=== PATIENT | male | born 1940 | race Caucasian/White ===

== ENCOUNTER 2017-07-27 08:25 | Day surgery (SDC) | payer MEDICARE ==
[~2017-07-27] VITALS: Ht 167.6 cm; Wt 87.4 kg
[~2017-07-27 08:25] MED LIST: ESOM40CA PO; METO-391 PO; METR45GE TP; SODIUM CHLORIDE 0.9% 1000ML 1,000 ML IV ONE
[2017-07-27 08:57] VITALS: BP 166/68
[2017-07-27] MEDS ORDERED: PROPOFOL 10 MG/ML 20ML VIAL IV ONE (10:52)
== END 2017-07-27 12:10 | disposition home or self-care (01) ==
LOC: DAH 08:25
PROVIDERS: ATTEND Internal Medicine
DX: D12.8 Benign neoplasm of rectum (principal); K63.5 Polyp of colon; K64.8 Other hemorrhoids; K29.80 Duodenitis without bleeding; K57.30 Diverticulosis of large intestine without perforation or abscess without bleeding; K31.89 Other diseases of stomach and duodenum; K31.7 Polyp of stomach and duodenum; D50.9 Iron deficiency anemia, unspecified; K74.60 Unspecified cirrhosis of liver; E66.9 Obesity, unspecified; Z68.30 Body mass index [BMI] 30.0-30.9, adult; Z86.010 Personal history of colon polyps
CPT/HCPCS: 43239; 45380; 45385; 88305; 88312; 93005; A4649; J2704; J7030

== ENCOUNTER 2017-07-27 21:03 | Inpatient (IN) | payer MEDICARE ==
[~2017-07-27] VITALS: Ht 170.2 cm; Wt 88.5 kg
[~2017-07-27 21:03] MED LIST changes: -SODIUM CHLORIDE 0.9% 1000ML 1,000 ML IV ONE
[2017-07-27 21:43] LABS: BASOPHILS % (AUTO) 0.4 % (0.0-5.0); EOSINOPHILS % (AUTO) 0.3 % (0.0-8.0); LYMPHOCYTES % (AUTO) 10.4 % (21.0-51.0); MEAN CORPUSCULAR HEMOGLOBIN 27.1 pg (27.0-33.0); MEAN CORPUSCULAR HGB CONC 32.5 g/dL (32.0-36.0); MEAN CORPUSCULAR VOLUME 83.5 fL (79-99); MONOCYTES % (AUTO) 14.4 % (3.0-13.0); NEUTROPHILS % (AUTO) 74.5 % (40.0-77.0); PLATELET COUNT (AUTO) 187 K/uL (130-400); RED BLOOD CELL COUNT(AUTO) 3.71 MIL/uL (4.50-6.20); RED CELL DISTRIBUTION WIDTH 24.7 % (11.0-15.5); WHITE BLOOD COUNT (AUTO) 6.1 K/uL (4.8-10.8)
[2017-07-27 21:53] LABS: INR 1.19 (0.85-1.15); PARTIAL THROMBOPLASTIN TIME 41.9 SEC (26.3-35.5); PROTHROMBIN TIME 12.5 SEC (9.6-11.6)
[2017-07-27 22:12] LABS: CREATININE 0.9 mg/dL (0.5-1.5); POTASSIUM 3.8 mmol/L (3.5-5.1)
[2017-07-27 22:17] LABS: ALBUMIN 2.9 g/dL (3.5-5.0); BILIRUBIN,TOTAL 1.9 mg/dL (0.2-1.0); TOTAL PROTEIN, SERUM 7.7 g/dL (6.0-8.3)
[2017-07-27] MEDS ORDERED: ONDANSETRON HCL 4 MG/2 ML VIAL ONE (23:29)
[2017-07-28] VITALS (20 sets, daily range): BP systolic 109–153; BP diastolic 37–82
[2017-07-28] MEDS ORDERED: ONDANSETRON HCL 4 MG/2 ML VIAL IV PRN ×2 (00:15→09:45)
[2017-07-28] MEDS ORDERED: POTASSIUM CHLORIDE 20 MEQ ERTAB PO PRN (00:15)
[2017-07-28] MEDS ORDERED: POTASSIUM CHLORIDE 10% ELIXIR 20 MEQ/15 ML UDCUP PO PRN (00:15)
[2017-07-28] MEDS ORDERED: POTASSIUM CHLORIDE 20MEQ/100ML 100 ML IV PRN (00:15)
[2017-07-28] MEDS ORDERED: HYDRALAZINE HCL 20 MG/ML VIAL IV PRN ×2 (00:15→09:45)
[2017-07-28] MEDS ORDERED: LIDOCAINE HCL-MPF 1% 2ML VIAL IVP PRN (00:15)
[2017-07-28] MEDS ORDERED: SODIUM CHLORIDE 0.9% 100 ML IV ONE (00:52)
[2017-07-28 02:17] LABS: HEMATOCRIT 26.7 % (42-54)
[2017-07-28 06:11] LABS: HEMATOCRIT 23.6 % (42-54); MEAN CORPUSCULAR HEMOGLOBIN 29.9 pg (27.0-33.0); MEAN CORPUSCULAR HGB CONC 35.8 g/dL (32.0-36.0); MEAN CORPUSCULAR VOLUME 83.6 fL (79-99); PLATELET COUNT (AUTO) 117 K/uL (130-400); RED BLOOD CELL COUNT(AUTO) 2.82 MIL/uL (4.50-6.20); RED CELL DISTRIBUTION WIDTH 24.5 % (11.0-15.5); WHITE BLOOD COUNT (AUTO) 3.7 K/uL (4.8-10.8)
[2017-07-28 06:22] LABS: CREATININE 0.7 mg/dL (0.5-1.5); POTASSIUM 3.6 mmol/L (3.5-5.1)
[2017-07-28] MEDS ORDERED: PANTOPRAZOLE SODIUM 80 MG in SODIUM CHLORIDE 0.9% 100 ML IV SCH (09:00)
[2017-07-28] MEDS ORDERED: SODIUM CHLORIDE 0.9% 1000ML 1,000 ML IV SCH (09:35)
[2017-07-28] MEDS ORDERED: NITROGLYCERIN 0.4 MG SL TAB SL PRN (09:45)
[2017-07-28] MEDS ORDERED: MORPHINE SULFATE 2 MG/ML 1ML SYG IV PRN (09:45)
[2017-07-28] MEDS ORDERED: ACETAMINOPHEN 325 MG TAB PO PRN ×2 (09:45)
[2017-07-28] MEDS ORDERED: LACTULOSE 20 GM/30 ML UDCUP PO PRN (09:45)
[2017-07-28] MEDS ORDERED: MAG HYDROX/AL HYDROX/SIMETH ES 30 ML SUSP UDCUP PO PRN (09:45)
[2017-07-28] MEDS ORDERED: GUAIFENESIN-DM 200/20 MG 10 ML PO PRN (09:45)
[2017-07-28] MEDS ORDERED: ACETAMINOPHEN-CODEINE 300/30MG TAB PO PRN (09:45)
[2017-07-28] MEDS ORDERED: PEG 3350/NA SULF,BICARB,CL/KCL 4000 ML SOLN PO SCH (12:00)
[2017-07-28 18:13] LABS: HEMATOCRIT 25.2 % (42-54)
[2017-07-28] MEDS ORDERED: MEPERIDINE-PF 50 MG/ML SYG ONE (18:59)
[2017-07-28] MEDS ORDERED: MIDAZOLAM HCL 1 MG/ML 2ML VIAL ONE (19:00)
[2017-07-28] MEDS ORDERED: EPINEPHRINE 1 MG/ML AMPULE ONE (19:14)
[2017-07-28] MEDS: **HM** TOPROL XL 50MG PO SCH (21:00)
[2017-07-29] VITALS (10 sets, daily range): BP systolic 102–149; BP diastolic 46–72
[2017-07-29 04:49] LABS: HEMATOCRIT 22.6 % (42-54); MEAN CORPUSCULAR HEMOGLOBIN 27.5 pg (27.0-33.0); MEAN CORPUSCULAR HGB CONC 32.3 g/dL (32.0-36.0); PLATELET COUNT (AUTO) 116 K/uL (130-400); RED BLOOD CELL COUNT(AUTO) 2.65 MIL/uL (4.50-6.20); WHITE BLOOD COUNT (AUTO) 3.7 K/uL (4.8-10.8)
[2017-07-29 05:08] LABS: CREATININE 0.8 mg/dL (0.5-1.5); POTASSIUM 3.4 mmol/L (3.5-5.1)
[2017-07-29] MEDS: **HM** TOPROL XL 50MG PO SCH ×2 (09:00→21:00)
[2017-07-29 11:09] LABS: MEAN CORPUSCULAR HEMOGLOBIN 27.4 pg (27.0-33.0); MEAN CORPUSCULAR HGB CONC 32.3 g/dL (32.0-36.0); MEAN CORPUSCULAR VOLUME 84.6 fL (79-99); NUCLEATED RED BLOOD CELLS 0.1 % (0.0-0.19); PLATELET COUNT (AUTO) 103 K/uL (130-400); RED BLOOD CELL COUNT(AUTO) 2.59 MIL/uL (4.50-6.20); RED CELL DISTRIBUTION WIDTH 24.7 % (11.0-15.5); WHITE BLOOD COUNT (AUTO) 3.4 K/uL (4.8-10.8)
[2017-07-30 04:00] VITALS: BP 136/72
[2017-07-30 04:58] LABS: HEMATOCRIT 28.7 % (42-54); MEAN CORPUSCULAR HEMOGLOBIN 28.7 pg (27.0-33.0); MEAN CORPUSCULAR VOLUME 84.4 fL (79-99); PLATELET COUNT (AUTO) 113 K/uL (130-400); RED BLOOD CELL COUNT(AUTO) 3.39 MIL/uL (4.50-6.20); RED CELL DISTRIBUTION WIDTH 22.7 % (11.0-15.5); WHITE BLOOD COUNT (AUTO) 3.5 K/uL (4.8-10.8)
[2017-07-30 05:05] LABS: CREATININE 0.8 mg/dL (0.5-1.5); POTASSIUM 3.1 mmol/L (3.5-5.1)
[2017-07-30 08:00] VITALS: BP 126/61
[2017-07-30] MEDS: **HM** TOPROL XL 50MG PO SCH (08:44)
[2017-07-30] MEDS ORDERED: PANTOPRAZOLE SODIUM 40 MG TABLET.DR PO SCH (09:00)
== END 2017-07-30 12:25 | disposition home or self-care (01) | DRG 348 ==
LOC: EDH 21:03 → EDHIP 22:58 → OBSVTOIN 22:58 → INTOOBSV 22:58 → 3DH 07-28 01:02
PROVIDERS: ADMIT Internal Medicine; ATTEND Internal Medicine
PROC: 30233N1 Transfusion of Nonautologous Red Blood Cells into Peripheral Vein, Percutaneous Approach (ICD-10-PCS; principal; 2017-07-27)
PROC: 0DB Gastrointestinal System, Excision (ICD-10-PCS; 2017-07-27)
PROC: 0DJD8ZZ Inspection of Lower Intestinal Tract, Via Natural or Artificial Opening Endoscopic (ICD-10-PCS; 2017-07-27)
DX: K92.2 Gastrointestinal hemorrhage, unspecified (principal); D62 Acute posthemorrhagic anemia; K63.3 Ulcer of intestine; D69.6 Thrombocytopenia, unspecified; K70.30 Alcoholic cirrhosis of liver without ascites; F10.10 Alcohol abuse, uncomplicated; D72.819 Decreased white blood cell count, unspecified; I10 Essential (primary) hypertension; Z96.641 Presence of right artificial hip joint; Z88.8 Allergy status to other drugs, medicaments and biological substances
CPT/HCPCS: 36415; 36430; 74176; 80048; 80053; 82270; 85025; 85027; 85610; 85730; 86850; 86900; 86901; 86922; 88305; 88312; 93005; C9113; J0171; J2175; J2250; J2405; J2704; J7030; P9016

== ENCOUNTER 2018-02-08 06:05 | Day surgery (SDC) | payer MEDICARE ==
[~2018-02-08] VITALS: Ht 170.2 cm; Wt 88.3 kg
[~2018-02-08 06:05] MED LIST changes: +FURO20TA4 PO; -METR45GE TP; +SODIUM CHLORIDE 0.9% 1000ML 1,000 ML IV ONE
[2018-02-08 07:13] VITALS: BP 131/68
[2018-02-08] MEDS ORDERED: PROPOFOL 10 MG/ML 20ML VIAL IV ONE (08:07)
[2018-02-08 08:18] VITALS: BP 153/83
[2018-02-08 08:26] VITALS: BP 131/75
[2018-02-08 08:31] VITALS: BP 120/84
[2018-02-08 08:35] VITALS: BP 128/74
== END 2018-02-08 09:16 | disposition home or self-care (01) ==
LOC: ENDO 06:05 → DAH 06:05 → ENDO 09:16
PROVIDERS: ATTEND Internal Medicine Gastroenterology
DX: I85.00 Esophageal varices without bleeding (principal); K29.50 Unspecified chronic gastritis without bleeding; K70.30 Alcoholic cirrhosis of liver without ascites; I10 Essential (primary) hypertension; K21.9 Gastro-esophageal reflux disease without esophagitis; K76.6 Portal hypertension; K31.89 Other diseases of stomach and duodenum; M19.019 Primary osteoarthritis, unspecified shoulder; Z79.899 Other long term (current) drug therapy; Z88.8 Allergy status to other drugs, medicaments and biological substances; Z96.641 Presence of right artificial hip joint
CPT/HCPCS: 43239; 43244; 88305; 88312; 88342; 93005; A4606; J2704; J7030

== ENCOUNTER 2018-03-30 22:17 | Inpatient (IN) | payer MEDICARE ==
[~2018-03-30] VITALS: Ht 170.2 cm; Wt 73.5 kg
[~2018-03-30 22:17] MED LIST changes: -SODIUM CHLORIDE 0.9% 1000ML 1,000 ML IV ONE
[2018-03-30] MEDS ORDERED: SODIUM CHLORIDE 0.9% 500ML 500 ML IV ONE (22:47)
[2018-03-30] MEDS ORDERED: ONDANSETRON HCL 4 MG/2 ML VIAL ONE (22:47)
[2018-03-30 22:49] LABS: HEMATOCRIT 34.6 % (42-54); LYMPHOCYTES % (AUTO) 19.6 % (21.0-51.0); MEAN CORPUSCULAR HEMOGLOBIN 29.8 pg (27.0-33.0); MEAN CORPUSCULAR HGB CONC 33.4 g/dL (32.0-36.0); MEAN CORPUSCULAR VOLUME 89.2 fL (79-99); MONOCYTES % (AUTO) 12.7 % (3.0-13.0); NEUTROPHILS % (AUTO) 64.7 % (40.0-77.0); NUCLEATED RED BLOOD CELLS 0.1 % (0.0-0.19); PLATELET COUNT (AUTO) 217 K/uL (130-400); RED BLOOD CELL COUNT(AUTO) 3.88 MIL/uL (4.50-6.20); RED CELL DISTRIBUTION WIDTH 16.7 % (11.0-15.5); WHITE BLOOD COUNT (AUTO) 8.1 K/uL (4.8-10.8)
[2018-03-30 23:03] LABS: INR 1.18 (0.85-1.15); PARTIAL THROMBOPLASTIN TIME 45.6 SEC (26.3-35.5); PROTHROMBIN TIME 12.3 SEC (9.6-11.6)
[2018-03-30 23:24] LABS: ALBUMIN 2.8 g/dL (3.5-5.0); BILIRUBIN,TOTAL 0.9 mg/dL (0.2-1.0); TOTAL PROTEIN, SERUM 8.3 g/dL (6.0-8.3)
[2018-03-30] MEDS ORDERED: IOHEXOL-350 75 ML VIAL IV ONE (23:28)
[2018-03-30] MEDS ORDERED: METOCLOPRAMIDE 10 MG/2 ML VIAL ONE (23:53)
[2018-03-30] MEDS ORDERED: SODIUM CHLORIDE 0.9% 250 ML IV ONE (23:57)
[2018-03-31] MEDS ORDERED: IOHEXOL-350 75 ML VIAL IV ONE (00:21)
[2018-03-31 01:20] VITALS: BP 157/82
[2018-03-31] MEDS ORDERED: ONDANSETRON HCL MDV 20ML 2 MG/ML VIAL IV PRN (01:45)
[2018-03-31] MEDS ORDERED: MORPHINE SULFATE 2 MG/ML 1ML SYG IV PRN (01:45)
[2018-03-31] MEDS ORDERED: MORPHINE SULFATE 4 MG/1ML SYG IV PRN (01:45)
[2018-03-31 04:00] VITALS: BP 129/69
[2018-03-31 06:11] LABS: HEMATOCRIT 30.7 % (42-54); MEAN CORPUSCULAR HEMOGLOBIN 29.2 pg (27.0-33.0); MEAN CORPUSCULAR HGB CONC 32.7 g/dL (32.0-36.0); MEAN CORPUSCULAR VOLUME 89.5 fL (79-99); PLATELET COUNT (AUTO) 159 K/uL (130-400); RED BLOOD CELL COUNT(AUTO) 3.43 MIL/uL (4.50-6.20); RED CELL DISTRIBUTION WIDTH 16.6 % (11.0-15.5); WHITE BLOOD COUNT (AUTO) 6.6 K/uL (4.8-10.8)
[2018-03-31 06:20] LABS: INR 1.21 (0.85-1.15); PARTIAL THROMBOPLASTIN TIME 47.8 SEC (26.3-35.5); PROTHROMBIN TIME 12.7 SEC (9.6-11.6)
[2018-03-31 06:22] LABS: ALBUMIN 2.5 g/dL (3.5-5.0); BILIRUBIN,TOTAL 1.2 mg/dL (0.2-1.0); CREATININE 0.9 mg/dL (0.5-1.5); POTASSIUM 4.3 mmol/L (3.5-5.1); TOTAL PROTEIN, SERUM 7.3 g/dL (6.0-8.3)
[2018-03-31 07:00] VITALS: BP 122/62
[2018-03-31] MEDS ORDERED: ENOXAPARIN SODIUM 30 MG/0.3 ML SQ SCH (09:00)
[2018-03-31] MEDS: FAMOTIDINE/PF 20 MG/2 ML VIAL IV SCH ×2 (09:17→21:56)
[2018-03-31] MEDS ORDERED: SPIR50TA PO (09:21)
[2018-03-31 11:00] VITALS: BP 114/68
[2018-03-31] MEDS: SODIUM CHLORIDE 0.9% 1000ML 1,000 ML IV SCH ×3 (11:32→21:32)
[2018-03-31] MEDS ORDERED: LACTULOSE 20 GM/30 ML UDCUP PO SCH (15:30)
[2018-03-31 16:00] VITALS: BP 126/62
[2018-03-31 20:00] VITALS: BP 144/70
[2018-04-01 00:09] VITALS: BP 124/60
[2018-04-01 04:15] VITALS: BP 124/56
[2018-04-01 05:05] LABS: BASOPHILS % (AUTO) 0.7 % (0.0-5.0); EOSINOPHILS % (AUTO) 7.4 % (0.0-8.0); HEMATOCRIT 29.8 % (42-54); LYMPHOCYTES % (AUTO) 19.3 % (21.0-51.0); MEAN CORPUSCULAR HEMOGLOBIN 30.4 pg (27.0-33.0); MEAN CORPUSCULAR HGB CONC 33.8 g/dL (32.0-36.0); MONOCYTES % (AUTO) 14.2 % (3.0-13.0); NEUTROPHILS % (AUTO) 58.4 % (40.0-77.0); NUCLEATED RED BLOOD CELLS 0.1 % (0.0-0.19); PLATELET COUNT (AUTO) 172 K/uL (130-400); RED BLOOD CELL COUNT(AUTO) 3.31 MIL/uL (4.50-6.20); RED CELL DISTRIBUTION WIDTH 16.7 % (11.0-15.5)
[2018-04-01] MEDS: SODIUM CHLORIDE 0.9% 1000ML 1,000 ML IV SCH (05:05)
[2018-04-01 05:14] LABS: CREATININE 0.8 mg/dL (0.5-1.5); POTASSIUM 4.1 mmol/L (3.5-5.1)
[2018-04-01 07:00] VITALS: BP 149/66
[2018-04-01] MEDS: FAMOTIDINE/PF 20 MG/2 ML VIAL IV SCH (08:52)
[2018-04-01] MEDS ORDERED: SPIRONOLACTONE 25 MG TAB PO SCH (09:00)
[2018-04-01] MEDS ORDERED: FUROSEMIDE 20 MG TABLET PO SCH (09:00)
[2018-04-01 11:00] VITALS: BP 146/76
== END 2018-04-01 14:30 | disposition home or self-care (01) | DRG 390 ==
LOC: EDH 22:17 → EDHIP 03-31 00:10 → OBSVTOIN 03-31 00:10 → 3BH 03-31 01:03
PROVIDERS: ADMIT Internal Medicine; ATTEND Internal Medicine
DX: K56.600 Partial intestinal obstruction, unspecified as to cause (principal); Z80.51 Family history of malignant neoplasm of kidney; I10 Essential (primary) hypertension; K21.9 Gastro-esophageal reflux disease without esophagitis; Z87.891 Personal history of nicotine dependence; Z96.641 Presence of right artificial hip joint; E66.9 Obesity, unspecified; Z68.25 Body mass index [BMI] 25.0-25.9, adult
CPT/HCPCS: 36415; 74021; 74177; 80048; 80053; 82140; 83605; 83690; 84484; 85025; 85027; 85610; 85730; 93005; J2405; J2765; J3490; J7030; J7040; Q9967

== ENCOUNTER 2018-04-04 06:03 | Day surgery (SDC) | payer MEDICARE ==
[~2018-04-04] VITALS: Ht 199.4 cm; Wt 74.3 kg
[~2018-04-04 06:03] MED LIST changes: -METO-391 PO; +SODIUM CHLORIDE 0.9% 1000ML 1,000 ML IV ONE; +SPIR50TA PO
[2018-04-04 06:21] VITALS: BP 128/51
[2018-04-04] MEDS ORDERED: PROPOFOL 10 MG/ML 20ML VIAL IV ONE ×2 (07:27)
[2018-04-04 07:38] VITALS: BP 93/46
[2018-04-04 07:45] VITALS: BP 98/52
[2018-04-04 07:50] VITALS: BP 103/54
== END 2018-04-04 08:10 | disposition home or self-care (01) ==
LOC: DAH 06:03
PROVIDERS: ATTEND Internal Medicine Gastroenterology
DX: I85.00 Esophageal varices without bleeding (principal); K31.89 Other diseases of stomach and duodenum; K76.6 Portal hypertension; I86.4 Gastric varices; K74.60 Unspecified cirrhosis of liver; I10 Essential (primary) hypertension; K21.9 Gastro-esophageal reflux disease without esophagitis; Z98.890 Other specified postprocedural states; Z79.899 Other long term (current) drug therapy; Z96.641 Presence of right artificial hip joint; Z88.8 Allergy status to other drugs, medicaments and biological substances
CPT/HCPCS: 43239; 88305; 88342; 93005; A4606; J2704 ×2; J7030

== ENCOUNTER 2018-09-26 10:17 | Day surgery (SDC) | payer MEDICARE ==
[~2018-09-26] VITALS: Ht 170.2 cm; Wt 81.6 kg
[2018-09-26] VITALS (8 sets, daily range): BP systolic 94–118; BP diastolic 54–62
[2018-09-26] MEDS ORDERED: LACT10SO32 PO (10:53)
--- NOTE | 2018-09-26 11:45 | NUR ---
piv piv removed to left hand, noted bleeding so manual pressured applied for about 5 minutes. after pressured applied noted bruising to site. pt denies taking blood thinners,, bleeding stop, but brusing to left hand, no hematoma noted only bruising. ice pack given to patient to apply at home . dc instructions given to pt / pt spouse, instructed to f/u with dr. maria. verbalized understanding. pt awake and alert, denies any pain or discomforts. small pressure dressing applied to left hand site iv area.
--- NOTE | 2018-09-26 12:00 | NUR ---
dc pt dc home via wc,no distress noted. denies any pain or discomforts. accompanied by spouse, pt denies any pain or discomforts
== END 2018-09-26 12:00 | disposition home or self-care (01) ==
LOC: DAH 10:17 → ENDO 10:17
PROVIDERS: ATTEND Internal Medicine
DX: K29.70 Gastritis, unspecified, without bleeding (principal); D50.9 Iron deficiency anemia, unspecified; K31.819 Angiodysplasia of stomach and duodenum without bleeding; K31.89 Other diseases of stomach and duodenum; I85.00 Esophageal varices without bleeding; K70.31 Alcoholic cirrhosis of liver with ascites; K21.9 Gastro-esophageal reflux disease without esophagitis; I10 Essential (primary) hypertension; Z98.890 Other specified postprocedural states; Z79.899 Other long term (current) drug therapy; Z86.010 Personal history of colon polyps; Z88.8 Allergy status to other drugs, medicaments and biological substances
CPT/HCPCS: 43239; 88305; A4606; J7030

== ENCOUNTER 2018-12-30 09:41 | Inpatient (IN) | payer MEDICARE | END 2019-01-05 09:00 | disposition left against medical advice (07) | LOC: EDH 09:41 → EDHIP 13:58 → 3CH 19:41 | PROC: 0WQF0ZZ Repair Abdominal Wall, Open Approach (ICD-10-PCS; principal; 2019-01-02 22:05) | DX: K42.0 Umbilical hernia with obstruction, without gangrene (principal); L03.90 Cellulitis, unspecified; K81.0 Acute cholecystitis; K56.699 Other intestinal obstruction unspecified as to partial versus complete obstruction; M65.9 Synovitis and tenosynovitis, unspecified; K70.30 Alcoholic cirrhosis of liver without ascites; K57.30 Diverticulosis of large intestine without perforation or abscess without bleeding ==

== ENCOUNTER 2019-04-30 08:14 | Emergency (ER) | payer MEDICARE ==
[~2019-04-30 08:14] MED LIST changes: +LACT10SO32 PO; -SODIUM CHLORIDE 0.9% 1000ML 1,000 ML IV ONE
[2019-04-30 09:24] LABS: BASOPHILS % (AUTO) 0.7 % (0.0-5.0); EOSINOPHILS % (AUTO) 0.7 % (0.0-8.0); HEMATOCRIT 34.8 % (42-54); LYMPHOCYTES % (AUTO) 13.9 % (21.0-51.0); MEAN CORPUSCULAR HEMOGLOBIN 35.3 pg (27.0-33.0); MEAN CORPUSCULAR HGB CONC 34.7 g/dL (32.0-36.0); MEAN CORPUSCULAR VOLUME 101.8 fL (79-99); MONOCYTES % (AUTO) 15.1 % (3.0-13.0); NEUTROPHILS % (AUTO) 69.6 % (40.0-77.0); NUCLEATED RED BLOOD CELLS 0.1 % (0.0-0.19); PLATELET COUNT (AUTO) 154 K/uL (130-400); RED BLOOD CELL COUNT(AUTO) 3.42 MIL/uL (4.50-6.20); RED CELL DISTRIBUTION WIDTH 14.8 % (11.0-15.5); WHITE BLOOD COUNT (AUTO) 6.1 K/uL (4.8-10.8)
[2019-04-30 09:30] LABS: CREATININE 1.1 mg/dL (0.5-1.5); POTASSIUM 4.5 mmol/L (3.5-5.1)
[2019-04-30 09:32] LABS: INR 1.32 (0.85-1.15); PARTIAL THROMBOPLASTIN TIME 38.8 SEC (26.3-35.5); PROTHROMBIN TIME 13.7 SEC (9.6-11.6)
[2019-04-30 09:35] LABS: ALBUMIN 2.2 g/dL (3.5-5.0); BILIRUBIN,DIRECT 1.6 mg/dL (0.0-0.3); BILIRUBIN,TOTAL 3.2 mg/dL (0.2-1.0); TOTAL PROTEIN, SERUM 7.6 g/dL (6.0-8.3)
[2019-04-30 10:47] LABS: APPEARANCE,URINE Cloudy (CLEAR); BILIRUBIN,URINE Moderate (NEGATIVE); COLOR,URINE Orange (YELLOW); GLUCOSE, URINE (UA) Negative (NEGATIVE); KETONES,URINE Trace mg/dL (NEGATIVE); LEUKOCYTE ESTERASE ,URINE Small (NEGATIVE); NITRATE,URINE Positive (NEGATIVE); OCCULT BLOOD,URINE Negative (NEGATIVE); PH,URINE 5.5 (5.0-8.0); PROTEIN,URINE POS 1+ mg/dL (NEGATIVE)
[2019-04-30 11:23] LABS: BACTERIA,URINE Few /HPF (None Seen); MUCUS,URINE Many LPF (None Seen); RBC,URINE 0-1 /HPF (0-1); SQUAMOUS EPITHELIAL CELL,UR Few /HPF (0-2)
--- NOTE | 2019-04-30 11:45 | NUR ---
U/S GD PARACENTESIS PROCEDURE PERFORMED BY DR REYNA. PUNCTURE SITE RIGHT LOWER QUADRANT OF ABDOMEN AND PATIENT TOLERATED PROCEDURE WELL. TOTAL REMOVED 6.5 LITERS OF CLOUDY YELLOW FLUID. END OF PROCEDURE AT 1220. CATHETER REMOVED AND DRESSING APPLIED. NO BLEEDING NOTED. ALBUMIN 25% 50 GRAMS ORDERED TO BE GIVEN IV UPON ARRIVAL TO FLOOR PER [facility] [place] [facility]. REPORT CALLED TO YON SMITH. PT TRANSFERRED BACK TO ED ROOM 15 VIA BED. PT STABLE, AAO X3, DROWSY, WITH NO C/O PAIN. SPECIMEN SENT TO LAB.
[2019-04-30] MEDS ORDERED: ALBUMIN (HUMAN) 25% 200 ML IV SCH (12:15)
[2019-04-30] MEDS ORDERED: ALBUMIN (HUMAN) 25% 100 ML IV ONE (12:54)
[2019-04-30 13:21] LABS: APPEARANCE BODY FLUID CLEAR (CLEAR); BODY FLUID RBC 239 /cu. mm.; BODY FLUID WBC 82 /cu. mm.; COLOR,BODY FLUID YELLOW (LT YELLOW); SPECIMENTYPE,BODY FLUID ASCITES; TOTAL VOLUME,BODY FLUID 4800 mL
[2019-04-30 13:32] LABS: BF LYMPHOCYTE 14 %; BF MESOTHELIAL 54 %; BF MONOCYTE 27 %
== END 2019-04-30 14:16 | disposition home or self-care (01) ==
LOC: EDH 08:14
DX: K74.60 Unspecified cirrhosis of liver (principal); I10 Essential (primary) hypertension; Z87.891 Personal history of nicotine dependence; Z88.8 Allergy status to other drugs, medicaments and biological substances
CPT/HCPCS: 36415; 49083; 80048; 80076; 81001; 82140; 85025; 85610; 85730; 87071; 87205; 89051; 96365; 99285; A4215; P9046